=== PATIENT | male | born 1995 | race African-American/Black ===

== ENCOUNTER 2020-09-11 09:30 | Emergency (ER) | payer SELFPAY ==
[~2020-09-11] VITALS: Ht 190.5 cm; Wt 79.5 kg
[2020-09-11 09:38] VITALS: TEMP 98.8
[2020-09-11 10:30] VITALS: BP 119/71; PULSE 69
== END 2020-09-11 10:30 | disposition home or self-care (01) ==
LOC: COL.ER 09:30
DX: U07.1 COVID-19 (principal); F17.210 Nicotine dependence, cigarettes, uncomplicated

== ENCOUNTER 2021-01-20 01:31 | Emergency (ER) | payer SELFPAY ==
[~2021-01-20] VITALS: Ht 188 cm; Wt 81.8 kg
[2021-01-20 02:35] VITALS: BP 120/83; PULSE 78; TEMP 98.5
== END 2021-01-20 02:35 | disposition home or self-care (01) ==
LOC: COL.ER 01:31
DX: S43.004A Unspecified dislocation of right shoulder joint, initial encounter (principal); F17.200 Nicotine dependence, unspecified, uncomplicated; W50.0XXA Accidental hit or strike by another person, initial encounter; Y93.61 Activity, american tackle football

== ENCOUNTER 2021-04-20 17:20 | Emergency (ER) | payer SELFPAY ==
[~2021-04-20] VITALS: Ht 188 cm; Wt 77.3 kg
[2021-04-20 17:45] VITALS: TEMP 98.1
[2021-04-20 20:12] VITALS: BP 146/101; PULSE 51
== END 2021-04-20 20:12 | disposition home or self-care (01) ==
LOC: COL.ER 17:20
DX: M24.411 Recurrent dislocation, right shoulder (principal); X50.1XXA Overexertion from prolonged static or awkward postures, initial encounter; Y93.89 Activity, other specified; Y92.007 Garden or yard of unspecified non-institutional (private) residence as the place of occurrence of the external cause
CPT/HCPCS: J2704; J3010; J3360; J7030

== ENCOUNTER 2021-05-11 01:42 | Emergency (ER) | payer SELFPAY ==
[~2021-05-11] VITALS: Ht 188 cm; Wt 75.0 kg
[2021-05-11] MEDS ORDERED: PERCOCET 325 MG1 TA2 PO (02:33)
[2021-05-11 04:00] VITALS: BP 176/96; PULSE 83; TEMP 98
== END 2021-05-11 04:10 | disposition home or self-care (01) ==
LOC: COL.ER 01:42
DX: S43.004A Unspecified dislocation of right shoulder joint, initial encounter (principal); X50.1XXA Overexertion from prolonged static or awkward postures, initial encounter; Y93.41 Activity, dancing
CPT/HCPCS: J2704

== ENCOUNTER 2021-07-16 14:52 | Emergency (ER) | payer SELFPAY ==
[~2021-07-16] VITALS: Ht 188 cm; Wt 75.0 kg
[~2021-07-16 14:52] MED LIST: PERCOCET 325 MG1 TA2 PO
[2021-07-16 15:27] VITALS: TEMP 98.1
[2021-07-16 16:31] VITALS: BP 125/89; PULSE 62
== END 2021-07-16 16:32 | disposition home or self-care (01) ==
LOC: COL.ER 14:52
DX: S43.014A Anterior dislocation of right humerus, initial encounter (principal); F17.200 Nicotine dependence, unspecified, uncomplicated; Z28.310 Unvaccinated for COVID-19; X50.1XXA Overexertion from prolonged static or awkward postures, initial encounter; Y93.F2 Activity, caregiving, lifting

== ENCOUNTER 2021-08-24 09:59 | Emergency (ER) | payer SELFPAY ==
[~2021-08-24] VITALS: Ht 188 cm; Wt 75.0 kg
[2021-08-24 10:02] VITALS: BP 139/98; PULSE 73; TEMP 98
== END 2021-08-24 10:45 | disposition home or self-care (01) ==
LOC: COL.ER 09:59
DX: S43.004A Unspecified dislocation of right shoulder joint, initial encounter (principal); Z28.310 Unvaccinated for COVID-19; X50.1XXA Overexertion from prolonged static or awkward postures, initial encounter